=== PATIENT | male | born 1980 | race Hispanic/Latino ===

== ENCOUNTER 2021-02-13 10:06 | Inpatient (IN) | payer BC, OTHER ==
[~2021-02-13] VITALS: Ht 188 cm; Wt 166.5 kg
[2021-02-13 10:42] LABS: BASOPHILS % (AUTO) 0.7 % (0.0-5.0); EOSINOPHILS % (AUTO) 4.5 % (0.0-8.0); HEMATOCRIT 44.8 % (42-54); LYMPHOCYTES % (AUTO) 23.3 % (21.0-51.0); MEAN CORPUSCULAR HEMOGLOBIN 29.5 pg (27.0-33.0); MEAN CORPUSCULAR HGB CONC 33.7 g/dL (32.0-36.0); MEAN CORPUSCULAR VOLUME 87.7 fL (79-99); MONOCYTES % (AUTO) 8.5 % (3.0-13.0); NEUTROPHILS % (AUTO) 60.9 % (40.0-77.0); PLATELET COUNT (AUTO) 189 K/uL (130-400); RED BLOOD CELL COUNT(AUTO) 5.11 MIL/uL (4.50-6.20); RED CELL DISTRIBUTION WIDTH 12.4 % (11.0-15.5); WHITE BLOOD COUNT (AUTO) 8.5 K/uL (4.8-10.8)
[2021-02-13 10:56] LABS: ALBUMIN 2.9 g/dL (3.5-5.0); BILIRUBIN,TOTAL 0.9 mg/dL (0.2-1.0); POTASSIUM 3.4 mmol/L (3.5-5.1)
[2021-02-13] MEDS ORDERED: DiphenhydrAMINE HCL 50 MG/ML VIAL IV PRN (15:45)
[2021-02-13] MEDS ORDERED: NITROGLYCERIN 0.4 MG SL TAB SL PRN (15:45)
[2021-02-13] MEDS ORDERED: POTASSIUM CHLORIDE 20MEQ/100ML 100 ML IV PRN ×2 (15:45)
[2021-02-13] MEDS ORDERED: LACTATED RINGERS 1000ML 1,000 ML IV SCH (15:45)
[2021-02-13] MEDS ORDERED: ONDANSETRON 4MG INJ IV PRN (15:45)
[2021-02-13] MEDS ORDERED: LACTULOSE 20 GM/30 ML UDCUP PO PRN (15:45)
[2021-02-13] MEDS ORDERED: GLUCAGON 1MG KIT 1 MG ML IM PRN (15:45)
[2021-02-13] MEDS ORDERED: POTASSIUM CHLORIDE 10% ELIXIR 20 MEQ/15 ML UDCUP PO PRN (15:45)
[2021-02-13] MEDS ORDERED: GUAIFENESIN-DM 200/20 MG 10 ML PO PRN (15:45)
[2021-02-13] MEDS ORDERED: DEXTROSE 50%-WATER 50 ML DISP.SYRIN IV PRN (15:45)
[2021-02-13] MEDS ORDERED: DIPHENHYDRAMINE HCL 25 MG CAPSULE PO PRN (15:45)
[2021-02-13] MEDS ORDERED: ACETAMINOPHEN 325 MG TAB PO PRN ×2 (15:45)
[2021-02-13] MEDS ORDERED: MAG/ALUM/SIMETH 30 ML UDCUP PO PRN (15:45)
[2021-02-13 15:59] LABS: HEMOGLOBIN A1C 12.7 % (4.0-6.0)
[2021-02-13] MEDS ORDERED: CEFTRIAXONE 1G VIAL IVP SCH (16:00)
[2021-02-13] MEDS ORDERED: CEFTRIAXONE 1G VIAL ONE (16:21)
[2021-02-13] MEDS ORDERED: LACTATED RINGERS 1000ML 1,000 ML IV ONE (16:21)
[2021-02-13] MEDS ORDERED: CLINDAMYCIN IVPB 600MG/50ML 50 ML IV ONE ×2 (16:23→20:43)
[2021-02-13] MEDS ORDERED: INSULIN HUMULIN R 100 UNIT/ML 3ML ONE (18:54)
[2021-02-13 19:44] LABS: TROPONIN I 0.04 ng/mL (0.00-0.06)
[2021-02-13] MEDS ORDERED: METOPROLOL TARTRATE 25 MG TAB ONE (20:43)
[2021-02-13 20:59] LABS: APPEARANCE,URINE Clear (CLEAR); BILIRUBIN,URINE Negative (NEGATIVE); COLOR,URINE Yellow (YELLOW); GLUCOSE, URINE (UA) >=1000 mg/dL (NEGATIVE); KETONES,URINE >=160 mg/dL (NEGATIVE); LEUKOCYTE ESTERASE ,URINE Small (NEGATIVE); NITRATE,URINE Negative (NEGATIVE); OCCULT BLOOD,URINE Negative (NEGATIVE); PROTEIN,URINE Trace mg/dL (NEGATIVE)
[2021-02-13] MEDS: INSULIN HUMULIN R 100 UNIT/ML 3ML SQ SCH (21:00)
[2021-02-13 21:05] LABS: BACTERIA,URINE Rare /HPF (None Seen); RBC,URINE 0-1 /HPF (0-1); SQUAMOUS EPITHELIAL CELL,UR Few /HPF (0-2)
[2021-02-13 21:06] LABS: YEAST,URINE BUDDING Rare /HPF (None Seen)
[2021-02-13 21:07] LABS: AMPHET/METH SCREEN,URINE NEGATIVE (NEGATIVE); BARBITURATE SCREEN, URINE NEGATIVE (NEGATIVE); BENZODIAZEPINES SCREEN,URINE NEGATIVE (NEGATIVE); CANNABINOID SCREEN,URINE NEGATIVE (NEGATIVE); COCAINE SCREEN,URINE POSITIVE (NEGATIVE); OPIATE SCREEN,URINE NEGATIVE (NEGATIVE); PHENCYCLIDINE SCREEN,URINE NEGATIVE (NEGATIVE)
[2021-02-13 23:12] VITALS: BP 130/64
[2021-02-14] MEDS: INSULIN HUMULIN R 100 UNIT/ML 3ML SQ SCH ×5 (00:06→20:39)
[2021-02-14] MEDS: METOPROLOL TARTRATE 25 MG TAB PO SCH ×3 (00:08→20:51)
[2021-02-14] MEDS: INSULIN GLARGINE 100 UNITS/ML 10 ML VIAL SQ SCH ×2 (00:12→20:38)
[2021-02-14 03:46] LABS: BASOPHILS % (AUTO) 0.4 % (0.0-5.0); HEMATOCRIT 41.5 % (42-54); LYMPHOCYTES % (AUTO) 27.5 % (21.0-51.0); MEAN CORPUSCULAR HEMOGLOBIN 28.9 pg (27.0-33.0); MEAN CORPUSCULAR HGB CONC 33.3 g/dL (32.0-36.0); MEAN CORPUSCULAR VOLUME 86.8 fL (79-99); MONOCYTES % (AUTO) 12.6 % (3.0-13.0); NEUTROPHILS % (AUTO) 53.3 % (40.0-77.0); PLATELET COUNT (AUTO) 210 K/uL (130-400); RED BLOOD CELL COUNT(AUTO) 4.78 MIL/uL (4.50-6.20); RED CELL DISTRIBUTION WIDTH 12.2 % (11.0-15.5); WHITE BLOOD COUNT (AUTO) 7.8 K/uL (4.8-10.8)
[2021-02-14 04:02] LABS: CARBON DIOXIDE 26 mmol/L (21-32); CHLORIDE 97 mmol/L (101-111); CREATININE 0.8 mg/dL (0.5-1.5); GLOMERULAR FILTR. RATE CALC 114 mL/min (>60); GLUCOSE,RANDOM 240 mg/dL (70-105); POTASSIUM 3.7 mmol/L (3.5-5.1); SODIUM SERUM 134 mmol/L (136-145); UREA NITROGEN, BLOOD 12 mg/dL (7-18)
[2021-02-14 04:07] LABS: ALANINE AMINOTRANSFERASE 49 U/L (12-78); ALBUMIN 2.5 g/dL (3.5-5.0); ASPARTATE AMINOTRANSFERASE 19 U/L (10-37); BILIRUBIN,TOTAL 0.7 mg/dL (0.2-1.0); CREATINE KINASE, TOTAL 19 U/L (21-232); MYOGLOBIN 24 ng/mL (10-92); TOTAL PROTEIN, SERUM 6.9 g/dL (6.0-8.3); TROPONIN I < 0.04 ng/mL (0.00-0.06)
[2021-02-14 04:30] VITALS: BP 128/62
[2021-02-14] MEDS ORDERED: 0.9% NACL 250ML 250 ML IV ONE (05:08)
[2021-02-14] MEDS: CLINDAMYCIN IVPB 600MG/50ML 50 ML IV SCH ×3 (05:09→16:59)
[2021-02-14 08:43] VITALS: BP 120/78
[2021-02-14] MEDS: CEFTRIAXONE 1G VIAL IVP SCH (09:01)
[2021-02-14] MEDS: ASPIRIN 325 MG TABLET PO SCH (09:01)
[2021-02-14] MEDS: ENOXAPARIN SODIUM 40 MG/0.4 ML SYRINGE SQ SCH (09:02)
[2021-02-14 12:04] VITALS: BP 119/73
[2021-02-14 16:20] VITALS: BP_SYST 131; BP_DIAS 48; BP_DIAS 87
[2021-02-14] MEDS: 0.9%NACL 1000ML 1,000 ML IV SCH (16:59)
[2021-02-14 19:08] VITALS: BP 131/92
[2021-02-14 23:11] VITALS: BP 118/59
[2021-02-15] MEDS: CLINDAMYCIN IVPB 600MG/50ML 50 ML IV SCH ×5 (00:14→23:11)
[2021-02-15] MEDS: 0.9%NACL 1000ML 1,000 ML IV SCH ×2 (03:08→22:04)
[2021-02-15 03:36] VITALS: BP 137/81
[2021-02-15 04:39] LABS: BASOPHILS % (AUTO) 0.5 % (0.0-5.0); EOSINOPHILS % (AUTO) 4.1 % (0.0-8.0); HEMATOCRIT 42.2 % (42-54); LYMPHOCYTES % (AUTO) 27.5 % (21.0-51.0); MEAN CORPUSCULAR HEMOGLOBIN 28.8 pg (27.0-33.0); MEAN CORPUSCULAR HGB CONC 32.9 g/dL (32.0-36.0); MEAN CORPUSCULAR VOLUME 87.6 fL (79-99); MONOCYTES % (AUTO) 11.3 % (3.0-13.0); NEUTROPHILS % (AUTO) 55.4 % (40.0-77.0); PLATELET COUNT (AUTO) 238 K/uL (130-400); RED BLOOD CELL COUNT(AUTO) 4.82 MIL/uL (4.50-6.20); RED CELL DISTRIBUTION WIDTH 12.4 % (11.0-15.5); WHITE BLOOD COUNT (AUTO) 8.5 K/uL (4.8-10.8)
[2021-02-15 05:07] LABS: ALBUMIN 2.5 g/dL (3.5-5.0); BILIRUBIN,TOTAL 0.7 mg/dL (0.2-1.0); CREATININE 0.8 mg/dL (0.5-1.5); POTASSIUM 3.4 mmol/L (3.5-5.1)
[2021-02-15] MEDS: INSULIN HUMULIN R 100 UNIT/ML 3ML SQ SCH ×4 (06:19→20:21)
[2021-02-15 07:00] VITALS: BP 136/84
[2021-02-15] MEDS: ASPIRIN 325 MG TABLET PO SCH (10:15)
[2021-02-15] MEDS: CEFTRIAXONE 1G VIAL IVP SCH (10:16)
[2021-02-15] MEDS: ENOXAPARIN SODIUM 40 MG/0.4 ML SYRINGE SQ SCH (10:16)
[2021-02-15] MEDS: METOPROLOL TARTRATE 25 MG TAB PO SCH ×2 (10:16→20:17)
[2021-02-15 11:00] VITALS: BP 139/92
[2021-02-15 15:00] VITALS: BP 134/77
[2021-02-15 19:11] VITALS: BP 150/84
[2021-02-15] MEDS: INSULIN GLARGINE 100 UNITS/ML 10 ML VIAL SQ SCH (20:19)
[2021-02-15] MEDS: NYSTATIN 100000 UNIT/ML 5ML UDCUP PO SCH (21:00)
[2021-02-15 23:19] VITALS: BP 127/79
[2021-02-16 03:56] VITALS: BP 130/76
[2021-02-16 05:02] LABS: BASOPHILS % (AUTO) 0.6 % (0.0-5.0); EOSINOPHILS % (AUTO) 4.1 % (0.0-8.0); HEMATOCRIT 42.5 % (42-54); LYMPHOCYTES % (AUTO) 29.3 % (21.0-51.0); MEAN CORPUSCULAR HEMOGLOBIN 29.8 pg (27.0-33.0); MEAN CORPUSCULAR HGB CONC 34.1 g/dL (32.0-36.0); MEAN CORPUSCULAR VOLUME 87.4 fL (79-99); MONOCYTES % (AUTO) 9.3 % (3.0-13.0); NEUTROPHILS % (AUTO) 55.3 % (40.0-77.0); PLATELET COUNT (AUTO) 292 K/uL (130-400); RED BLOOD CELL COUNT(AUTO) 4.86 MIL/uL (4.50-6.20); RED CELL DISTRIBUTION WIDTH 12.4 % (11.0-15.5); WHITE BLOOD COUNT (AUTO) 9.5 K/uL (4.8-10.8)
[2021-02-16] MEDS: CLINDAMYCIN IVPB 600MG/50ML 50 ML IV SCH ×2 (05:25→12:08)
[2021-02-16 05:35] LABS: ALBUMIN 2.6 g/dL (3.5-5.0); BILIRUBIN,TOTAL 0.6 mg/dL (0.2-1.0); CREATININE 0.7 mg/dL (0.5-1.5); POTASSIUM 3.3 mmol/L (3.5-5.1); TOTAL PROTEIN, SERUM 7.2 g/dL (6.0-8.3)
[2021-02-16] MEDS: KCL 20 MEQ ERTAB PO PRN ×3 (06:24→12:22)
[2021-02-16] MEDS: INSULIN HUMULIN R 100 UNIT/ML 3ML SQ SCH ×3 (06:26→17:13)
[2021-02-16] MEDS: METOPROLOL TARTRATE 25 MG TAB PO SCH (08:34)
[2021-02-16] MEDS: ASPIRIN 325 MG TABLET PO SCH (08:35)
[2021-02-16] MEDS: CEFTRIAXONE 1G VIAL IVP SCH (08:35)
[2021-02-16] MEDS: 0.9%NACL 1000ML 1,000 ML IV SCH (08:36)
[2021-02-16] MEDS: ENOXAPARIN SODIUM 40 MG/0.4 ML SYRINGE SQ SCH (08:36)
[2021-02-16 08:50] VITALS: BP 141/80
[2021-02-16] MEDS: NYSTATIN 100000 UNIT/ML 5ML UDCUP PO SCH ×2 (09:00→12:14)
[2021-02-16 11:41] VITALS: BP 118/73
[2021-02-16] MEDS ORDERED: CLIN-141 PO (13:41)
[2021-02-16 16:30] VITALS: BP 120/73
[2021-02-16] MEDS ORDERED: FAMOTIDINE 20MG TAB PO SCH (21:00)
== END 2021-02-16 17:45 | disposition home or self-care (01) | DRG 439 ==
LOC: EDH 10:06 → OBSVTOIN 10:07 → INTOOBSV 10:07 → UNDOADMOB 10:07 → EDHIP 10:07 → 4CH 22:30 → 4DH 02-15 04:04
PROVIDERS: ADMIT Family Medicine; ATTEND Family Medicine
DX: K85.90 Acute pancreatitis without necrosis or infection, unspecified (principal); L02.415 Cutaneous abscess of right lower limb; L03.115 Cellulitis of right lower limb; E11.65 Type 2 diabetes mellitus with hyperglycemia; E78.00 Pure hypercholesterolemia, unspecified; K80.20 Calculus of gallbladder without cholecystitis without obstruction; E87.6 Hypokalemia
CPT/HCPCS: 36415; 71045; 73700; 74176; 80053; 80305; 81001; 82550; 82948; 83036; 83690; 83874; 84132; 84478; 84484; 85025; 87040; 87070; 87077; 87186; 87426; 87641; 93005; G0378; J0696; J1650; J1815; J3480; J3490; J7050; J7120; U0003

== ENCOUNTER 2021-08-16 12:03 | Inpatient (IN) | payer SELFPAY ==
[~2021-08-16] VITALS: Ht 180.3 cm; Wt 172.0 kg
[~2021-08-16 12:03] MED LIST: CLIN-141 PO
[2021-08-16] MEDS ORDERED: ONDANSETRON 4MG INJ IVP SCH (12:30)
[2021-08-16] MEDS ORDERED: MORPHINE 2 MG SYG IVP SCH (12:30)
[2021-08-16] MEDS ORDERED: INSULIN HUMULIN R 100 UNIT/ML 3ML SQ SCH (12:30)
[2021-08-16] MEDS ORDERED: ZOSYN 3.375GM +NS 50ML IV SCH (12:30)
[2021-08-16] MEDS ORDERED: 0.9%NACL 1000ML 1,000 ML IV SCH (12:30)
[2021-08-16 12:51] LABS: HEMATOCRIT 44.5 % (42-54); MEAN CORPUSCULAR HEMOGLOBIN 29.9 pg (27.0-33.0); MEAN CORPUSCULAR HGB CONC 33.5 g/dL (32.0-36.0); MEAN CORPUSCULAR VOLUME 89.4 fL (79-99); RED BLOOD CELL COUNT(AUTO) 4.98 MIL/uL (4.50-6.20); RED CELL DISTRIBUTION WIDTH 12.3 % (11.0-15.5); WHITE BLOOD COUNT (AUTO) 11.6 K/uL (4.8-10.8)
[2021-08-16] MEDS ORDERED: ACETAMINOPHEN 500 MG TABLET ONE (13:15)
[2021-08-16] MEDS: ZOSYN 3.375GM+NS 50ML 50 ML IV SCH ×2 (13:20→22:13)
[2021-08-16 13:27] LABS: ALBUMIN 3.4 g/dL (3.5-5.0); BILIRUBIN,TOTAL 1.5 mg/dL (0.2-1.0); CREATININE 1.2 mg/dL (0.5-1.5); POTASSIUM 3.9 mmol/L (3.5-5.1); TOTAL PROTEIN, SERUM 7.9 g/dL (6.0-8.3)
[2021-08-16] MEDS ORDERED: ACETAMINOPHEN 500 MG TABLET PO ONE (14:00)
[2021-08-16 14:05] LABS: APPEARANCE,URINE Cloudy (CLEAR); BILIRUBIN,URINE Negative (NEGATIVE); COLOR,URINE Yellow (YELLOW); GLUCOSE, URINE (UA) >=1000 mg/dL (NEGATIVE); KETONES,URINE Trace mg/dL (NEGATIVE); LEUKOCYTE ESTERASE ,URINE Small (NEGATIVE); NITRATE,URINE Negative (NEGATIVE); OCCULT BLOOD,URINE Negative (NEGATIVE); PROTEIN,URINE Negative (NEGATIVE); UROBILINOGEN,URINE 0.2 mg/dL (0.2-1.0)
[2021-08-16 14:20] LABS: BACTERIA,URINE Few /HPF (None Seen); RBC,URINE 0-1 /HPF (0-1)
[2021-08-16] MEDS ORDERED: VANCOMYCIN KIT 1 GM/250 ML IV.KIT IV SCH (14:30)
[2021-08-16] MEDS ORDERED: VANCOMYCIN 1G VIAL IVPB ONE (14:30)
[2021-08-16] MEDS ORDERED: 0.9% NACL 250ML 250 ML IV SCH (14:30)
[2021-08-16] MEDS ORDERED: ZOLPIDEM TARTRATE 5 MG TAB PO PRN (15:30)
[2021-08-16] MEDS ORDERED: ONDANSETRON 4MG INJ IV PRN (15:30)
[2021-08-16] MEDS: 0.9%NACL 1000ML 1,000 ML IV SCH (15:30)
[2021-08-16] MEDS ORDERED: ACETAMINOPHEN 325 MG TAB PO PRN (15:30)
[2021-08-16] MEDS ORDERED: MORPHINE 4 MG SYG IV PRN (15:30)
[2021-08-16] MEDS ORDERED: VANCOMYCIN PROTOCOL PER PHARMACY IV PRN (15:30)
[2021-08-16] MEDS ORDERED: DiphenhydrAMINE HCL 50 MG/ML VIAL IV PRN (15:30)
[2021-08-16] MEDS ORDERED: METF-446 PO (15:36)
[2021-08-16 15:59] LABS: HEMOGLOBIN A1C 11.1 % (4.0-6.0)
[2021-08-16] MEDS ORDERED: GLUCAGON 1MG KIT 1 MG ML IM PRN (16:30)
[2021-08-16] MEDS ORDERED: DEXTROSE 50%-WATER 50 ML DISP.SYRIN IV PRN (16:30)
[2021-08-16] MEDS ORDERED: COMPOUND IV REFRIGERATED 1 EACH IVSOLN MISC PRN (16:30)
[2021-08-16] MEDS: INSULIN HUMULIN R 100 UNIT/ML 3ML SQ SCH ×2 (18:00→21:00)
[2021-08-16] MEDS ORDERED: 0.9%NACL 50ML 50 ML IV ONE (22:08)
[2021-08-16] MEDS: FAMOTIDINE 20MG VIAL IV SCH (22:13)
[2021-08-16] MEDS: VANCOMYCIN 1.5GM/NS 250ML IV SCH ×2 (23:02)
[2021-08-16 23:25] VITALS: BP 118/61
[2021-08-17] VITALS (7 sets, daily range): BP systolic 85–156; BP diastolic 58–102
[2021-08-17] MEDS: 0.9%NACL 1000ML 1,000 ML IV SCH ×2 (01:30→06:01)
[2021-08-17 03:42] LABS: BASOPHILS % (AUTO) 0.3 % (0.0-5.0); EOSINOPHILS % (AUTO) 1.7 % (0.0-8.0); HEMATOCRIT 40.2 % (42-54); LYMPHOCYTES % (AUTO) 30.1 % (21.0-51.0); MEAN CORPUSCULAR HEMOGLOBIN 30.1 pg (27.0-33.0); MEAN CORPUSCULAR HGB CONC 32.8 g/dL (32.0-36.0); MEAN CORPUSCULAR VOLUME 91.8 fL (79-99); NEUTROPHILS % (AUTO) 58.4 % (40.0-77.0); PLATELET COUNT (AUTO) 146 K/uL (130-400); RED BLOOD CELL COUNT(AUTO) 4.38 MIL/uL (4.50-6.20); RED CELL DISTRIBUTION WIDTH 12.3 % (11.0-15.5); WHITE BLOOD COUNT (AUTO) 10.5 K/uL (4.8-10.8)
[2021-08-17 03:56] LABS: ALBUMIN 2.8 g/dL (3.5-5.0); CREATININE 0.9 mg/dL (0.5-1.5); POTASSIUM 3.8 mmol/L (3.5-5.1); TOTAL PROTEIN, SERUM 6.8 g/dL (6.0-8.3)
[2021-08-17] MEDS: ZOSYN 3.375GM+NS 50ML 50 ML IV SCH ×3 (05:02→21:32)
[2021-08-17] MEDS: INSULIN HUMULIN R 100 UNIT/ML 3ML SQ SCH ×7 (05:49→21:33)
[2021-08-17] MEDS: VANCOMYCIN 1.5GM/NS 250ML IV SCH ×6 (06:40→22:04)
[2021-08-17] MEDS: INSULIN GLARGINE 100 UNITS/ML 10 ML VIAL SQ SCH (09:02)
[2021-08-17] MEDS: FAMOTIDINE 20MG VIAL IV SCH ×2 (09:06→21:32)
[2021-08-17] MEDS: ENOXAPARIN SODIUM 30 MG/0.3 ML SQ SCH (09:07)
[2021-08-17] MEDS ORDERED: KETOROLAC 15MG/ML VIAL (15MG/ML) IM PRN (09:30)
[2021-08-17] MEDS: POLYETHYLENE GLYCOL 3350 17 GM POWD.PACK PO SCH (14:59)
[2021-08-17] MEDS: ACETAMINOPHEN 325 MG TAB PO PRN (21:55)
[2021-08-18] VITALS (22 sets, daily range): BP systolic 126–169; BP diastolic 58–93
[2021-08-18 05:07] LABS: BASOPHILS % (AUTO) 0.4 % (0.0-5.0); EOSINOPHILS % (AUTO) 1.6 % (0.0-8.0); HEMATOCRIT 39.5 % (42-54); LYMPHOCYTES % (AUTO) 27.5 % (21.0-51.0); MEAN CORPUSCULAR HGB CONC 32.7 g/dL (32.0-36.0); MEAN CORPUSCULAR VOLUME 91.9 fL (79-99); MONOCYTES % (AUTO) 9.5 % (3.0-13.0); NEUTROPHILS % (AUTO) 60.4 % (40.0-77.0); PLATELET COUNT (AUTO) 157 K/uL (130-400); RED CELL DISTRIBUTION WIDTH 12.2 % (11.0-15.5)
[2021-08-18] MEDS: ACETAMINOPHEN 325 MG TAB PO PRN (05:15)
[2021-08-18] MEDS: ZOSYN 3.375GM+NS 50ML 50 ML IV SCH ×4 (05:16→20:39)
[2021-08-18 05:26] LABS: CREATININE 0.8 mg/dL (0.5-1.5); POTASSIUM 3.4 mmol/L (3.5-5.1)
[2021-08-18] MEDS: VANCOMYCIN 1.5GM/NS 250ML IV SCH ×6 (06:12→22:25)
[2021-08-18] MEDS: INSULIN GLARGINE 100 UNITS/ML 10 ML VIAL SQ SCH (07:00)
[2021-08-18] MEDS: INSULIN HUMULIN R 100 UNIT/ML 3ML SQ SCH ×7 (07:30→20:41)
[2021-08-18] MEDS: FAMOTIDINE 20MG VIAL IV SCH ×2 (08:52→20:39)
[2021-08-18] MEDS: ENOXAPARIN SODIUM 30 MG/0.3 ML SQ SCH (09:00)
[2021-08-18] MEDS: POLYETHYLENE GLYCOL 3350 17 GM POWD.PACK PO SCH (09:00)
[2021-08-18 09:53] LABS: INR 1.04 (0.85-1.15); PROTHROMBIN TIME 11.3 SEC (9.6-11.6)
[2021-08-18 09:54] LABS: PARTIAL THROMBOPLASTIN TIME 28.1 SEC (26.3-35.5)
[2021-08-18] MEDS ORDERED: SUCCINYLCHOLINE CHLORIDE 20 MG/ML 10 ML VIAL ONE (12:46)
[2021-08-18] MEDS ORDERED: LIDOCAINE PF 100MG/5ML (2%) SYRINGE 5ML ONE (12:46)
[2021-08-18] MEDS ORDERED: DEXAMETHASONE SOD PHOSPHATE 10MG/ML 1ML VIAL ONE (12:46)
[2021-08-18] MEDS ORDERED: GLYCOPYRROLATE 1 MG/5 ML SYRINGE ONE (12:47)
[2021-08-18] MEDS ORDERED: NEOSTIGMINE 5MG/5ML SYR IV ONE (12:47)
[2021-08-18] MEDS ORDERED: ONDANSETRON 4MG INJ ONE (12:47)
[2021-08-18] MEDS ORDERED: MIDAZOLAM HCL 1 MG/ML 2ML VIAL ONE (12:47)
[2021-08-18] MEDS ORDERED: PROPOFOL 10 MG/ML 20ML VIAL IV ONE ×2 (12:47→12:50)
[2021-08-18] MEDS ORDERED: FENTANYL CITRATE PF 50 MCG/1 ML 2ML VIAL ONE ×2 (12:48→13:23)
[2021-08-18] MEDS ORDERED: ROCURONIUM 10MG/1ML SYR 10 MG/ML ML ONE (12:48)
[2021-08-18] MEDS ORDERED: MEPERIDINE-PF 25 MG/ML SYG ONE (13:33)
[2021-08-18] MEDS: 0.9%NACL 1000ML 1,000 ML IV SCH (13:48)
[2021-08-19] VITALS (7 sets, daily range): BP systolic 121–139; BP diastolic 59–88
[2021-08-19] MEDS: ZOSYN 3.375GM+NS 50ML 50 ML IV SCH ×3 (04:28→20:44)
[2021-08-19 05:44] LABS: BASOPHILS % (AUTO) 0.3 % (0.0-5.0); HEMATOCRIT 40.2 % (42-54); LYMPHOCYTES % (AUTO) 20.3 % (21.0-51.0); MEAN CORPUSCULAR HGB CONC 33.3 g/dL (32.0-36.0); MEAN CORPUSCULAR VOLUME 90.1 fL (79-99); MONOCYTES % (AUTO) 7.3 % (3.0-13.0); NEUTROPHILS % (AUTO) 71.4 % (40.0-77.0); PLATELET COUNT (AUTO) 192 K/uL (130-400); RED BLOOD CELL COUNT(AUTO) 4.46 MIL/uL (4.50-6.20); WHITE BLOOD COUNT (AUTO) 9.8 K/uL (4.8-10.8)
[2021-08-19 06:08] LABS: CREATININE 0.8 mg/dL (0.5-1.5); POTASSIUM 4.2 mmol/L (3.5-5.1)
[2021-08-19] MEDS: VANCOMYCIN 1.5GM/NS 250ML IV SCH ×2 (06:24)
[2021-08-19] MEDS: INSULIN GLARGINE 100 UNITS/ML 10 ML VIAL SQ SCH (06:33)
[2021-08-19] MEDS: INSULIN HUMULIN R 100 UNIT/ML 3ML SQ SCH ×7 (06:34→21:59)
[2021-08-19] MEDS: POLYETHYLENE GLYCOL 3350 17 GM POWD.PACK PO SCH (08:24)
[2021-08-19] MEDS: FAMOTIDINE 20MG VIAL IV SCH ×2 (08:24→20:44)
[2021-08-19] MEDS: ENOXAPARIN SODIUM 30 MG/0.3 ML SQ SCH (08:25)
[2021-08-19] MEDS: VANCOMYCIN 1G 1.75 GM in 0.9% NACL 250ML 250 ML IV SCH ×2 (15:11→22:24)
[2021-08-20 03:46] VITALS: BP 125/85
[2021-08-20] MEDS: ZOSYN 3.375GM+NS 50ML 50 ML IV SCH ×2 (05:05→12:18)
[2021-08-20] MEDS: VANCOMYCIN 1G 1.75 GM in 0.9% NACL 250ML 250 ML IV SCH (06:19)
[2021-08-20] MEDS: INSULIN HUMULIN R 100 UNIT/ML 3ML SQ SCH ×7 (06:36→20:19)
[2021-08-20] MEDS: INSULIN GLARGINE 100 UNITS/ML 10 ML VIAL SQ SCH (06:37)
[2021-08-20 08:10] VITALS: BP 126/84
[2021-08-20] MEDS: FAMOTIDINE 20MG VIAL IV SCH ×2 (08:24→20:13)
[2021-08-20] MEDS: POLYETHYLENE GLYCOL 3350 17 GM POWD.PACK PO SCH (08:24)
[2021-08-20] MEDS: ENOXAPARIN SODIUM 30 MG/0.3 ML SQ SCH (08:24)
[2021-08-20 11:17] VITALS: BP 116/63
[2021-08-20 17:03] VITALS: BP 127/88
[2021-08-20] MEDS: CEPHALEXIN 500 MG CAPSULE PO SCH ×2 (17:18→22:18)
[2021-08-20 19:31] VITALS: BP 140/86
[2021-08-20 23:35] VITALS: BP 105/52
[2021-08-21 03:31] VITALS: BP 123/78
[2021-08-21] MEDS: INSULIN HUMULIN R 100 UNIT/ML 3ML SQ SCH ×5 (06:18→12:08)
[2021-08-21] MEDS: CEPHALEXIN 500 MG CAPSULE PO SCH ×2 (06:32→12:06)
[2021-08-21] MEDS ORDERED: INSULIN GLARGINE 100 UNITS/ML 10 ML VIAL SQ SCH (07:00)
[2021-08-21 07:15] VITALS: BP 150/91
[2021-08-21] MEDS: POLYETHYLENE GLYCOL 3350 17 GM POWD.PACK PO SCH (08:45)
[2021-08-21] MEDS: ENOXAPARIN SODIUM 30 MG/0.3 ML SQ SCH (08:45)
[2021-08-21] MEDS: FAMOTIDINE 20MG VIAL IV SCH (08:45)
[2021-08-21] MEDS ORDERED: POLY17PO4 PO (10:48)
[2021-08-21] MEDS ORDERED: CEPH500C2 PO (10:48)
[2021-08-21] MEDS ORDERED: GLIM4TAB36 PO (10:48)
[2021-08-21 11:15] VITALS: BP 123/81
== END 2021-08-21 15:05 | disposition home or self-care (01) | DRG 872 ==
LOC: EDH 12:03 → EDHIP 12:04 → 3AH 21:31
PROVIDERS: ADMIT Hospitalist; ATTEND Hospitalist
PROC: 0H98XZZ Drainage of Buttock Skin, External Approach (ICD-10-PCS; principal; 2021-08-18 13:24)
DX: A41.9 Sepsis, unspecified organism (principal); L02.215 Cutaneous abscess of perineum; E87.1 Hypo-osmolality and hyponatremia; K61.2 Anorectal abscess; Z68.43 Body mass index [BMI] 50.0-59.9, adult; L02.31 Cutaneous abscess of buttock; N39.0 Urinary tract infection, site not specified; E66.01 Morbid (severe) obesity due to excess calories; E11.65 Type 2 diabetes mellitus with hyperglycemia; K62.89 Other specified diseases of anus and rectum; Z20.822 Contact with and (suspected) exposure to COVID-19; K59.00 Constipation, unspecified; Z79.84 Long term (current) use of oral hypoglycemic drugs; Z83.3 Family history of diabetes mellitus; Z82.49 Family history of ischemic heart disease and other diseases of the circulatory system
CPT/HCPCS: 36415; 74176; 80048; 80053; 80202; 81001; 82010; 82948; 83036; 83605; 84484; 85025; 85027; 85610; 85730; 86140; 87040; 87070; 87076; 87077; 87088; 87186; 87205; 87635; 93005; 99291; C9803; G0378; J0330; J1100; J1650; J1815; J2001; J2175; J2250; J2270; J2405; J2543; J2704; J2710; J3010; J3370; J3490; J7030; J7050

== ENCOUNTER 2021-09-08 12:31 | Inpatient (IN) | payer SELFPAY ==
[~2021-09-08] VITALS: Ht 180.3 cm; Wt 167.9 kg
[~2021-09-08 12:31] MED LIST changes: +CEPH500C2 PO; -CLIN-141 PO; +GLIM4TAB36 PO; +METF-446 PO; +POLY17PO4 PO
[2021-09-08 13:01] LABS: BASOPHILS % (AUTO) 0.5 % (0.0-5.0); EOSINOPHILS % (AUTO) 0.1 % (0.0-8.0); HEMATOCRIT 45.4 % (42-54); LYMPHOCYTES % (AUTO) 18.6 % (21.0-51.0); MEAN CORPUSCULAR HEMOGLOBIN 30.1 pg (27.0-33.0); MEAN CORPUSCULAR HGB CONC 33.9 g/dL (32.0-36.0); MEAN CORPUSCULAR VOLUME 88.7 fL (79-99); MONOCYTES % (AUTO) 11.5 % (3.0-13.0); NEUTROPHILS % (AUTO) 68.9 % (40.0-77.0); PLATELET COUNT (AUTO) 137 K/uL (130-400); RED BLOOD CELL COUNT(AUTO) 5.12 MIL/uL (4.50-6.20); RED CELL DISTRIBUTION WIDTH 11.9 % (11.0-15.5); WHITE BLOOD COUNT (AUTO) 13.7 K/uL (4.8-10.8)
[2021-09-08 13:09] LABS: CREATININE 1.4 mg/dL (0.5-1.5); POTASSIUM 3.6 mmol/L (3.5-5.1)
[2021-09-08 13:14] LABS: ALBUMIN 2.9 g/dL (3.5-5.0); BILIRUBIN,TOTAL 1.3 mg/dL (0.2-1.0); TOTAL PROTEIN, SERUM 8.8 g/dL (6.0-8.3)
[2021-09-08] MEDS ORDERED: ACETAMINOPHEN 500 MG TABLET PO ONE (13:30)
[2021-09-08] MEDS ORDERED: 0.9%NACL 1000ML 2,259 ML IV ONE (13:30)
[2021-09-08] MEDS ORDERED: ACETAMINOPHEN 500 MG TABLET ONE (13:31)
[2021-09-08 14:21] LABS: APPEARANCE,URINE Cloudy (CLEAR); BILIRUBIN,URINE Small (NEGATIVE); COLOR,URINE Dark Yellow (YELLOW); GLUCOSE, URINE (UA) >=1000 mg/dL (NEGATIVE); KETONES,URINE 40 mg/dL (NEGATIVE); LEUKOCYTE ESTERASE ,URINE Small (NEGATIVE); NITRATE,URINE Positive (NEGATIVE); OCCULT BLOOD,URINE Large (NEGATIVE); PROTEIN,URINE 300 mg/dL (NEGATIVE)
[2021-09-08 14:32] LABS: BACTERIA,URINE Moderate /HPF (None Seen); MUCUS,URINE Moderate LPF (None Seen); SQUAMOUS EPITHELIAL CELL,UR Few /HPF (0-2)
[2021-09-08] MEDS ORDERED: ACETAMINOPHEN 325 MG TAB PO PRN (16:00)
[2021-09-08] MEDS ORDERED: MAG/ALUM/SIMETH 30 ML UDCUP PO PRN (16:00)
[2021-09-08] MEDS ORDERED: LACTULOSE 20 GM/30 ML UDCUP PO PRN (16:00)
[2021-09-08] MEDS ORDERED: DIPHENHYDRAMINE HCL 25 MG CAPSULE PO PRN (16:00)
[2021-09-08] MEDS ORDERED: VANCOMYCIN PROTOCOL PER PHARMACY IV PRN (16:00)
[2021-09-08] MEDS ORDERED: DiphenhydrAMINE HCL 50 MG/ML VIAL IV PRN (16:00)
[2021-09-08] MEDS ORDERED: LACTATED RINGERS 1000ML 1,000 ML IV SCH (16:00)
[2021-09-08] MEDS ORDERED: HYDRALAZINE 20MG/ML VIAL IV PRN ×2 (16:00)
[2021-09-08] MEDS ORDERED: ONDANSETRON 4MG INJ IV PRN (16:00)
[2021-09-08] MEDS: LACTATED RINGERS 1000ML 1,000 ML IV SCH (16:22)
[2021-09-08] MEDS ORDERED: COMPOUND IV REFRIGERATED 1 EACH IVSOLN MISC PRN ×2 (16:30→19:00)
[2021-09-08] MEDS ORDERED: DEXTROSE 50%-WATER 50 ML DISP.SYRIN IV PRN (16:30)
[2021-09-08] MEDS ORDERED: GLUCAGON 1MG KIT 1 MG ML IM PRN (16:30)
[2021-09-08] MEDS: VANCOMYCIN 1.75GM/250ML NS IV SCH ×2 (17:03)
[2021-09-08] MEDS: INSULIN HUMULIN R 100 UNIT/ML 3ML SQ SCH (17:04)
[2021-09-08 20:00] VITALS: BP 198/89
[2021-09-08] MEDS ORDERED: FAMOTIDINE 20MG VIAL IV SCH (21:00)
[2021-09-08] MEDS ORDERED: ZOSYN 3.375GM+NS 50ML 50 ML ONE (21:09)
[2021-09-08] MEDS ORDERED: FAMOTIDINE 20MG TAB ONE (21:10)
[2021-09-08] MEDS: FAMOTIDINE 20MG TAB PO SCH (21:21)
[2021-09-08] MEDS: ZOSYN 3.375GM+NS 50ML 50 ML IV SCH (21:21)
[2021-09-08] MEDS: INSULIN GLARGINE 100 UNITS/ML 10 ML VIAL SQ SCH (21:30)
[2021-09-08] MEDS ORDERED: HYDRALAZINE 20MG/ML VIAL ONE (22:24)
[2021-09-08] MEDS ORDERED: ACETAMINOPHEN 325 MG TAB ONE (22:31)
[2021-09-08] MEDS: ACETAMINOPHEN 325 MG TAB PO PRN (22:33)
[2021-09-09] VITALS: BP 111/66
[2021-09-09] MEDS: LACTATED RINGERS 1000ML 1,000 ML IV SCH ×2 (01:09→19:43)
[2021-09-09 04:00] VITALS: BP 102/92
[2021-09-09] MEDS: ZOSYN 3.375GM+NS 50ML 50 ML IV SCH ×3 (05:28→20:43)
[2021-09-09] MEDS: INSULIN HUMULIN R 100 UNIT/ML 3ML SQ SCH ×5 (06:51→20:56)
[2021-09-09 08:00] VITALS: BP 123/73
[2021-09-09] MEDS: VANCOMYCIN 1.75GM/250ML NS IV SCH ×4 (09:00→20:58)
[2021-09-09] MEDS ORDERED: ENOXAPARIN SODIUM 40 MG/0.4 ML SYRINGE SQ SCH (09:00)
[2021-09-09] MEDS: FAMOTIDINE 20MG TAB PO SCH ×2 (09:10→20:44)
[2021-09-09] MEDS: ENOXAPARIN SODIUM 40 MG/0.4 ML SYRINGE SQ SCH (09:11)
[2021-09-09 11:45] VITALS: BP 110/52
[2021-09-09] MEDS ORDERED: GLUCAGON 1MG KIT 1 MG ML IM PRN (12:30)
[2021-09-09] MEDS ORDERED: DEXTROSE 50%-WATER 50 ML DISP.SYRIN IV PRN (12:30)
[2021-09-09 14:09] LABS: BASOPHILS % (AUTO) 0.6 % (0.0-5.0); EOSINOPHILS % (AUTO) 1.1 % (0.0-8.0); HEMATOCRIT 37.9 % (42-54); LYMPHOCYTES % (AUTO) 23.4 % (21.0-51.0); MEAN CORPUSCULAR HEMOGLOBIN 29.9 pg (27.0-33.0); MEAN CORPUSCULAR HGB CONC 33.2 g/dL (32.0-36.0); MEAN CORPUSCULAR VOLUME 89.8 fL (79-99); MONOCYTES % (AUTO) 11.6 % (3.0-13.0); NEUTROPHILS % (AUTO) 62.8 % (40.0-77.0); PLATELET COUNT (AUTO) 113 K/uL (130-400); RED BLOOD CELL COUNT(AUTO) 4.22 MIL/uL (4.50-6.20); RED CELL DISTRIBUTION WIDTH 12.1 % (11.0-15.5); WHITE BLOOD COUNT (AUTO) 8.7 K/uL (4.8-10.8)
[2021-09-09 14:25] LABS: POTASSIUM 3.2 mmol/L (3.5-5.1)
[2021-09-09 14:29] LABS: BILIRUBIN,TOTAL 0.7 mg/dL (0.2-1.0); MAGNESIUM 1.8 mg/dL (1.80-2.40); PHOSPHORUS 2.5 mg/dL (2.5-4.9); TOTAL PROTEIN, SERUM 7.5 g/dL (6.0-8.3)
[2021-09-09 14:42] LABS: CRP QUANTITATIVE 422.7 mg/L (0.00-9.0)
[2021-09-09 14:43] LABS: ALBUMIN 2.2 g/dL (3.5-5.0)
[2021-09-09 15:13] LABS: ERYTHROCYTE SEDIMENTATION RATE 100 MM/HR (0-15)
[2021-09-09 16:00] VITALS: BP 108/60
[2021-09-09] MEDS ORDERED: METFORMIN HCL 500 MG TABLET PO SCH (17:00)
[2021-09-09] MEDS: ACETAMINOPHEN 325 MG TAB PO PRN (18:58)
[2021-09-09 20:00] VITALS: BP 132/75
[2021-09-09] MEDS: METFORMIN HCL 500 MG TABLET PO SCH (20:43)
[2021-09-09] MEDS: GLIMEPIRIDE 2 MG TABLET PO SCH (20:44)
[2021-09-09] MEDS: INSULIN GLARGINE 100 UNITS/ML 10 ML VIAL SQ SCH (20:56)
[2021-09-10] VITALS: BP 111/61
[2021-09-10 04:00] VITALS: BP 114/68
[2021-09-10 04:53] LABS: BASOPHILS % (AUTO) 0.6 % (0.0-5.0); EOSINOPHILS % (AUTO) 2.8 % (0.0-8.0); HEMATOCRIT 38.2 % (42-54); LYMPHOCYTES % (AUTO) 28.6 % (21.0-51.0); MEAN CORPUSCULAR HEMOGLOBIN 29.4 pg (27.0-33.0); MEAN CORPUSCULAR HGB CONC 32.7 g/dL (32.0-36.0); MEAN CORPUSCULAR VOLUME 89.9 fL (79-99); MONOCYTES % (AUTO) 15.1 % (3.0-13.0); PLATELET COUNT (AUTO) 124 K/uL (130-400); RED BLOOD CELL COUNT(AUTO) 4.25 MIL/uL (4.50-6.20); RED CELL DISTRIBUTION WIDTH 12.1 % (11.0-15.5); WHITE BLOOD COUNT (AUTO) 6.5 K/uL (4.8-10.8)
[2021-09-10 05:21] LABS: CREATININE 0.9 mg/dL (0.5-1.5)
[2021-09-10 05:29] LABS: CRP QUANTITATIVE 372.4 mg/L (0.00-9.0)
[2021-09-10] MEDS ORDERED: MAGNESIUM 2GM PREMIX 50ML 50 ML IV PRN (05:30)
[2021-09-10] MEDS ORDERED: LIDOCAINE HCL-MPF 1% 2ML VIAL IV PRN (05:30)
[2021-09-10] MEDS ORDERED: POTASSIUM CHLORIDE 10% ELIXIR 20 MEQ/15 ML UDCUP PO PRN (05:30)
[2021-09-10] MEDS ORDERED: POTASSIUM CHLORIDE 20MEQ/100ML 100 ML IV PRN (05:30)
[2021-09-10] MEDS: ZOSYN 3.375GM+NS 50ML 50 ML IV SCH ×4 (05:40→21:41)
[2021-09-10] MEDS: INSULIN HUMULIN R 100 UNIT/ML 3ML SQ SCH ×7 (05:41→21:00)
[2021-09-10 06:06] LABS: ERYTHROCYTE SEDIMENTATION RATE 116 MM/HR (0-15)
[2021-09-10] MEDS: KCL 20 MEQ ERTAB PO PRN ×3 (06:27→17:19)
[2021-09-10 07:52] LABS: ABG OXYGEN SATURATION 79.8 % (95.0-99.0); PCO2,VENOUS BLOOD GAS 36 (35-48)
[2021-09-10 08:00] VITALS: BP 115/73
[2021-09-10] MEDS: METFORMIN HCL 500 MG TABLET PO SCH ×2 (08:47→17:24)
[2021-09-10] MEDS: FAMOTIDINE 20MG TAB PO SCH ×2 (08:47→21:41)
[2021-09-10] MEDS: GLIMEPIRIDE 2 MG TABLET PO SCH ×2 (08:48→21:00)
[2021-09-10] MEDS: ENOXAPARIN SODIUM 40 MG/0.4 ML SYRINGE SQ SCH (08:49)
[2021-09-10 12:01] VITALS: BP 115/65
[2021-09-10] MEDS: VANCOMYCIN 1.75GM/250ML NS IV SCH ×6 (13:00→21:42)
[2021-09-10 16:00] VITALS: BP 128/77
[2021-09-10 20:00] VITALS: BP 114/67
[2021-09-10] MEDS: INSULIN GLARGINE 100 UNITS/ML 10 ML VIAL SQ SCH (21:00)
[2021-09-11] VITALS: BP 104/74
[2021-09-11 04:00] VITALS: BP 121/76
[2021-09-11] MEDS: INSULIN HUMULIN R 100 UNIT/ML 3ML SQ SCH ×4 (05:49→11:49)
[2021-09-11 05:54] LABS: BASOPHILS % (AUTO) 0.5 % (0.0-5.0); EOSINOPHILS % (AUTO) 2.4 % (0.0-8.0); HEMATOCRIT 36.8 % (42-54); LYMPHOCYTES % (AUTO) 30.8 % (21.0-51.0); MEAN CORPUSCULAR HEMOGLOBIN 29.4 pg (27.0-33.0); MEAN CORPUSCULAR HGB CONC 32.6 g/dL (32.0-36.0); MEAN CORPUSCULAR VOLUME 90.2 fL (79-99); MONOCYTES % (AUTO) 12.9 % (3.0-13.0); NEUTROPHILS % (AUTO) 52.4 % (40.0-77.0); PLATELET COUNT (AUTO) 158 K/uL (130-400); RED BLOOD CELL COUNT(AUTO) 4.08 MIL/uL (4.50-6.20); RED CELL DISTRIBUTION WIDTH 12.5 % (11.0-15.5); WHITE BLOOD COUNT (AUTO) 7.8 K/uL (4.8-10.8)
[2021-09-11] MEDS: ZOSYN 3.375GM+NS 50ML 50 ML IV SCH ×2 (06:00→13:43)
[2021-09-11] MEDS: KCL 20 MEQ ERTAB PO PRN (06:00)
[2021-09-11 06:09] LABS: POTASSIUM 3.4 mmol/L (3.5-5.1)
[2021-09-11 08:00] VITALS: BP 104/65
[2021-09-11] MEDS: GLIMEPIRIDE 2 MG TABLET PO SCH (08:11)
[2021-09-11] MEDS: FAMOTIDINE 20MG TAB PO SCH (08:11)
[2021-09-11] MEDS: METFORMIN HCL 500 MG TABLET PO SCH (08:11)
[2021-09-11] MEDS: ENOXAPARIN SODIUM 40 MG/0.4 ML SYRINGE SQ SCH (08:12)
[2021-09-11] MEDS: VANCOMYCIN 1.75GM/250ML NS IV SCH ×2 (10:40)
[2021-09-11] MEDS ORDERED: CEFU500T67 PO (11:00)
[2021-09-11] MEDS ORDERED: KCL 20 MEQ ERTAB PO SCH (11:00)
[2021-09-11 12:00] VITALS: BP 109/74
[2021-09-11 16:00] VITALS: BP 128/77
== END 2021-09-11 18:15 | disposition home or self-care (01) | DRG 871 ==
LOC: EDH 12:31 → 3DH 12:32 → OBSVTOIN 12:32 → EDH 17:35
PROVIDERS: ADMIT Internal Medicine; ATTEND Internal Medicine
DX: A41.9 Sepsis, unspecified organism (principal); E11.00 Type 2 diabetes mellitus with hyperosmolarity without nonketotic hyperglycemic-hyperosmolar coma (NKHHC); E43 Unspecified severe protein-calorie malnutrition; E87.1 Hypo-osmolality and hyponatremia; N17.9 Acute kidney failure, unspecified; Z68.43 Body mass index [BMI] 50.0-59.9, adult; N39.0 Urinary tract infection, site not specified; I10 Essential (primary) hypertension; E11.65 Type 2 diabetes mellitus with hyperglycemia; E66.01 Morbid (severe) obesity due to excess calories; E86.1 Hypovolemia; E87.6 Hypokalemia; B96.20 Unspecified Escherichia coli [E. coli] as the cause of diseases classified elsewhere; Z20.822 Contact with and (suspected) exposure to COVID-19; Z83.3 Family history of diabetes mellitus; Z82.49 Family history of ischemic heart disease and other diseases of the circulatory system; Z80.8 Family history of malignant neoplasm of other organs or systems
CPT/HCPCS: 36415; 36600; 71045; 80048; 80053; 80202; 81001; 82435; 82550; 82803; 82947; 82948; 83036; 83605; 83735; 84100; 84132; 84145; 84295; 84484; 85025; 85651; 86140; 87040; 87077; 87088; 87186; 87635; 87804; 87880; C9803; G0378; J0360; J1650; J1815; J2543; J3370; J7050; J7120

== ENCOUNTER 2022-05-14 17:11 | Emergency (ER) | payer BC ==
[~2022-05-14] VITALS: Ht 188 cm; Wt 163.3 kg
[~2022-05-14 17:11] MED LIST changes: +CEFU500T67 PO; -CEPH500C2 PO
[2022-05-14 17:46] LABS: BASOPHILS % (AUTO) 0.7 % (0.0-5.0); EOSINOPHILS % (AUTO) 3.2 % (0.0-8.0); HEMATOCRIT 45.7 % (42-54); LYMPHOCYTES % (AUTO) 45.8 % (21.0-51.0); MEAN CORPUSCULAR HEMOGLOBIN 29.4 pg (27.0-33.0); MEAN CORPUSCULAR HGB CONC 33.3 g/dL (32.0-36.0); MEAN CORPUSCULAR VOLUME 88.4 fL (79-99); MONOCYTES % (AUTO) 7.3 % (3.0-13.0); NEUTROPHILS % (AUTO) 42.8 % (40.0-77.0); PLATELET COUNT (AUTO) 169 K/uL (130-400); RED BLOOD CELL COUNT(AUTO) 5.17 MIL/uL (4.50-6.20); RED CELL DISTRIBUTION WIDTH 12.6 % (11.0-15.5); WHITE BLOOD COUNT (AUTO) 8.7 K/uL (4.8-10.8)
[2022-05-14 17:53] LABS: APPEARANCE,URINE Clear (CLEAR); BILIRUBIN,URINE Negative (NEGATIVE); COLOR,URINE Yellow (YELLOW); GLUCOSE, URINE (UA) >=1000 mg/dL (NEGATIVE); KETONES,URINE Trace mg/dL (NEGATIVE); LEUKOCYTE ESTERASE ,URINE Negative (NEGATIVE); NITRATE,URINE Positive (NEGATIVE); OCCULT BLOOD,URINE Negative (NEGATIVE); PROTEIN,URINE Negative (NEGATIVE); UROBILINOGEN,URINE 0.2 mg/dL (0.2-1.0)
[2022-05-14 17:58] LABS: CREATININE 1.1 mg/dL (0.5-1.5); POTASSIUM 4.1 mmol/L (3.5-5.1)
[2022-05-14] MEDS ORDERED: KETOROLAC 15MG/ML VIAL (15MG/ML) IV ONE (18:00)
[2022-05-14] MEDS ORDERED: 0.9%NACL 1000ML 1,000 ML IV ONE (18:00)
[2022-05-14] MEDS ORDERED: ONDANSETRON 4MG INJ IVP ONE (18:00)
[2022-05-14] MEDS ORDERED: MORPHINE 4 MG SYG IVP ONE (18:00)
[2022-05-14 18:02] LABS: ALBUMIN 3.6 g/dL (3.5-5.0); TOTAL PROTEIN, SERUM 7.7 g/dL (6.0-8.3)
[2022-05-14 18:33] LABS: BACTERIA,URINE Few /HPF (None Seen); MUCUS,URINE Rare LPF (None Seen); RBC,URINE None Seen /HPF (0-1)
[2022-05-14] MEDS ORDERED: CEFTRIAXONE 1G VIAL IVP ONE (19:00)
[2022-05-14] MEDS ORDERED: 0.9% NACL 500ML IV.SOLN 500 ML IV ONE (19:00)
[2022-05-14] MEDS ORDERED: INSULIN NPH 100 UNIT/ML 3ML SQ SCH (19:00)
[2022-05-14] MEDS ORDERED: CEPH500B PO (19:05)
[2022-05-14 19:21] VITALS: BP 142/82
== END 2022-05-14 19:31 | disposition home or self-care (01) ==
LOC: EDH 17:11
DX: N39.0 Urinary tract infection, site not specified (principal); E11.65 Type 2 diabetes mellitus with hyperglycemia; Z98.890 Other specified postprocedural states; Z87.442 Personal history of urinary calculi; Z79.899 Other long term (current) drug therapy; Z79.84 Long term (current) use of oral hypoglycemic drugs
CPT/HCPCS: 99284; 74176; 96374; 96375; 96361; 80053; 85025; 87077; 87088; 87186; 81001; 36415; 96372; J1815; J7040; J7030; J0696; J2405; J2270; J1885

== ENCOUNTER 2025-02-24 10:32 | Emergency (ER) | payer BC, OTHER ==
[~2025-02-24] VITALS: Ht 188 cm; Wt 166.0 kg
[~2025-02-24 10:32] MED LIST changes: +CEPH500B PO
[2025-02-24 10:57] LABS: BASOPHILS # (AUTO) 0.06 K/uL (0.00-0.20); BASOPHILS % (AUTO) 0.7 % (0.0-5.0); EOSINOPHILS # (AUTO) 0.27 K/uL (0.00-0.70); EOSINOPHILS % (AUTO) 3.3 % (0.0-8.0); HEMATOCRIT 43.9 % (42-54); IMMATURE GRANULOCYTE ABSOLUTE 0.02 K/uL (0-1); LYMPHOCYTES # (AUTO) 3.8 K/uL (1.0-4.8); LYMPHOCYTES % (AUTO) 45.6 % (21.0-51.0); MEAN CORPUSCULAR HEMOGLOBIN 31.4 pg (27.0-33.0); MEAN CORPUSCULAR HGB CONC 33.7 g/dL (32.0-36.0); MONOCYTES # (AUTO) 0.6 K/uL (0.1-1.0); MONOCYTES % (AUTO) 7.1 % (3.0-13.0); NEUTROPHILS # (AUTO) 3.5 K/uL (1.8-7.7); NEUTROPHILS % (AUTO) 43.1 % (40.0-77.0); PLATELET COUNT (AUTO) 194 K/uL (130-400); RED BLOOD CELL COUNT(AUTO) 4.72 MIL/uL (4.50-6.20); RED CELL DISTRIBUTION WIDTH 12.7 % (11.0-15.5); WHITE BLOOD COUNT (AUTO) 8.2 K/uL (4.8-10.8)
[2025-02-24 11:05] LABS: POTASSIUM 4.2 mmol/L (3.5-5.1)
--- NOTE | 2025-02-24 11:07 | ERN ---
ED Note History of Present Illness Stated Complaint: LEFT FLANK PAIN SINCE 1 WEEK AGO Chief Complaint: Flank Pain Time Seen by MD: 10:35 Time Seen by Midlevel: 10:40 Dictation: 44-year-old male with a history of diabetes and kidney stones coming in with complaints of bilateral flank pain for one week worsening today. Patient denies having any hematuria, dysuria, nausea, vomiting or fevers. Allergies: Coded Allergies: No Known Drug Allergies (Verified Allergy, Unknown, 02/13/21) Home Meds Active Scripts Methocarbamol (Methocarbamol) 500 Mg Tablet, 1 TAB PO TID for 5 Days, #90 TAB 0 Refills Prov:SURINDER GROSS PIPE LINE REPAIRER 02/24/25 Cephalexin Monohydrate (Keflex) 500 Mg Cap, 500 MG PO QID for 7 Days, #28 CAP Prov:DAIANA STUBBS CONGRESSIONAL REPRESENTATIVE 05/14/22 Cefuroxime Axetil (Cefuroxime) 500 Mg Tablet, 500 MG PO BID, #20 TAB 0 Refills Prov:MEIR ZELAYA AGPCNP 09/11/21 Glimepiride (Glimepiride) 4 Mg Tablet, 4 MG PO BID for 30 Days, #60 TAB Prov:RUDDY AGARWAL 08/21/21 Polyethylene Glycol 3350 (Miralax) 17 Gm Powd.pack, 17 GM PO DAILY, #1 BOTTLE Prov:RUDDY AGARWAL 08/21/21 Reported Medications Metformin HCl (Metformin HCl) 1,000 Mg Tablet, 1000 MG PO BID, TAB 08/16/21 Past Medical History Past Medical History: Diabetes-Type II, Kidney Stone Additional Past Medical Hx: Obesity Surgical History: None Surgical History Other: GROIN ABSCESS REMOVAL Family History: Negative Social History: Lives with family, Other Review of System Dictation Constitutional: Negative for fever,chills, and weight loss Eyes: Negative for injury, pain,redness, and discharge ENT: Negative for injury,pain or swelling Cardiovascular: Negative for chest pain, palpitations, and edema Respiratory: Negative for shortness of breath, cough, and wheezing, Abdomen/GI: Positive for bilateral flank pain, and nausea, no vomiting, no diarrhea, and no constipation Back: Negative for injury and pain : Negative for injury, bleeding and discharge MS/Extremity: Negative for injury and deformity Skin: Negative for rash, and discoloration Neuro: Negative for headache, weakness, numbness, tingling, and seizure Psych: Negative for suicide ideation, homicidal ideation, and hallucinations Review of Systems: was completed Initial Vital Sign VS Vital Signs Date Time Temp Pulse Resp B/P (MAP) Pulse Ox O2 Delivery O2 Flow Rate FiO2 02/24/25 10:33 97.5 73 20 126/87 98 Room Air 0 02/24/25 11:28 21 Physical Exam Dictation General: awake, alert, NAD Head/Face: Normocephalic, atraumatic Eyes: PERRL, EOMI, vision at baseline ENT: oral cavity clear, TMs clear, no signs of infection Neck: Trachea midline, supple, no nuchal rigidity Cardiovascular: RRR, normal S1/S2, No MRGs, no JVD Respiratory: CTAB, no respiratory distress, No rales or wheezes Abdomen: Soft, non-tender, non-distended, normal bowel sounds, no guarding or rebound, Skin: Warm, dry, normal turgor, no rash MS/Extremity: Pulses equal, no cyanosis, neurovascular intact, FROM Neuro: COAx4, GCS 15, strength 5/5, CN 2-12 intact, normal cerebellar exam, normal gait, Psych: Normal behavior, mood, and affect normal Results (Laboratory/Radiology) Laboratory/Radiology Laboratory Tests Test 02/24/25 10:46 02/24/25 10:51 Urine Color LIGHT-YELLOW (YELLOW) Urine Appearance CLEAR (CLEAR) Urine pH 5.0 (5.0-8.0) Urine Specific [place] 1.035 (1.001-1.031) Urine Protein NEGATIVE mg/dL (NEGATIVE) Urine Glucose (UA) >=1000 mg/dL (NEGATIVE) H Urine Ketones 5 mg/dL (NEGATIVE) H Urine Occult Blood NEGATIVE (NEGATIVE) Urine Nitrate NEGATIVE (NEGATIVE) Urine Bilirubin NEGATIVE mg/dL (NEGATIVE) Urine Urobilinogen 0.2 mg/dL (0.2-1.0) Urine Leukocyte Esterase NEGATIVE Graciela/uL Urine RBC 0-1 /HPF (0-1) Urine WBC 0-1 /HPF (0-1) Urine Squamous Epithelial Cells FEW /HPF (0-2) Urine Bacteria None /HPF (None Seen) White Blood Count 8.2 K/uL (4.8-10.8) Red Blood Count 4.72 MIL/uL (4.50-6.20) Hemoglobin 14.8 g/dL (14.0-18.0) Hematocrit 43.9 % (42-54) Mean Corpuscular Volume 93.0 fL (79-99) Mean Corpuscular Hemoglobin 31.4 pg (27.0-33.0) Mean Corpuscular Hemoglobin Concent 33.7 g/dL (32.0-36.0) Red Cell Distribution Width 12.7 % (11.0-15.5) Platelet Count 194 K/uL (130-400) Mean Platelet Volume 11.3 fL (7.5-10.5) H Immature Granulocyte % (Auto) 0.2 % (0-1) Neutrophils (%) (Auto) 43.1 % (40.0-77.0) Lymphocytes (%) (Auto) 45.6 % (21.0-51.0) Monocytes (%) (Auto) 7.1 % (3.0-13.0) Eosinophils (%) (Auto) 3.3 % (0.0-8.0) Basophils (%) (Auto) 0.7 % (0.0-5.0) Neutrophils # (Auto) 3.5 K/uL (1.8-7.7) Lymphocytes # (Auto) 3.8 K/uL (1.0-4.8) Monocytes # (Auto) 0.6 K/uL (0.1-1.0) Eosinophils # (Auto) 0.27 K/uL (0.00-0.70) Basophils # (Auto) 0.06 K/uL (0.00-0.20) Absolute Immature Granulocyte (auto 0.02 K/uL (0-1) Nucleated Red Blood Cells 0.0 % (0.0-0.19) Sodium Level 140 mmol/L (136-145) Potassium Level 4.2 mmol/L (3.5-5.1) Chloride Level 103 mmol/L (101-111) Carbon Dioxide Level 30 mmol/L (21-32) Blood Urea Nitrogen 10 mg/dL (7-18) Creatinine 1.0 mg/dL (0.5-1.3) Glomerular Filtration Rate Calc 96 mL/min (>90) Random Glucose 281 mg/dL (70-105) H Total Calcium 9.1 mg/dL (8.5-10.1) Labs Reviewed?: Yes CT Scan Comment: [facility] [address] [place], [place] [id number] IMAGING REPORT Signed PATIENT: ESA MEDINA MR#: [id number] : 1980 SEX: M AGE: 44 LOCATION: [facility] ORDER [id number] STATUS: REG ER REPORT#: [id number] SERVICE 1037 REASON: flank pain ORDERING PHYSICIAN: SURINDER GROSS NP PROCEDURE: ABD PEL WO - CT ABDOMEN/PELVIS W/O CONTRAST CT ABDOMEN/PELVIS W/O CONTRAST HISTORY: Left flank COMPARISON: None TECHNIQUE: Multiple sequential axial images of the abdomen and pelvis were obtained from the dome of the diaphragm through symphysis pubis. Patient was not given contrast through intravenous route. Oral contrast was not given. FINDINGS: No pleural effusion is seen bilaterally. There is no evidence of parenchymal disease or pulmonary nodule of the visualized lower lungs. Degenerative changes of the thoracolumbar spine are present. The heart is not enlarged. Liver is enlarged measuring 20 cm. Gallstones are seen in the gallbladder. The liver, spleen, adrenal glands and pancreas are unremarkable. There is no evidence of hydronephrosis bilaterally. No evidence of renal stone is seen. Fecal material is seen in the colon. There are normal size retroperitoneal and mesenteric lymph nodes. No ascites is seen. No CT evidence of acute appendicitis is seen. Pelvic sidewalls are symmetric bilaterally. Bladder is poorly distended IMPRESSION: 1. No hydronephrosis is seen. Gallstones in the gallbladder. CT was performed with one or more following dose reduction techniques: automated exposure control, adjustment of the mA and kv according to patient's size, or use of a iterative reconstruction technique. DICTATED BY: JANE JOAQUIN MD DATE: 02/24/25 [id number] ELECTRONICALLY SIGNED BY: JANE JOAQUIN MD DATE: 02/24/25 1301 ED Course ED Course Orders Procedure Category Date Status Time Cbc With Differential LAB 02/24/25 Complete 10:37 Basic Metabolic Panel LAB 02/24/25 Complete 10:37 Urinalysis Profile LAB 02/24/25 Complete 10:37 Ct Abdomen/Pelvis W/O CT 02/24/25 Resulted Contrast 10:37 0.9%Nacl 1000ml (Ns PHA 02/24/25 Complete 1000ml) 10:37 Ketorolac PHA 02/24/25 Complete Tromethamine 15mg/Ml 10:37 Current Medications Medications (Trade) Dose Ordered Sig/Anthony Route PRN Reason Start Time Stop Time Status Last Admin Dose Admin Ketorolac Tromethamine (toRADol) 15 mg ONCE STAT IV 02/24/25 10:37 02/24/25 10:45 DC 02/24/25 11:33 Sodium Chloride 1,000 ml @ 1,000 mls/hr Q1H STAT IV 02/24/25 10:37 02/24/25 11:36 DC 02/24/25 11:33 Vital Signs Date Time Temp Pulse Resp B/P (MAP) Pulse Ox O2 Delivery O2 Flow Rate FiO2 02/24/25 13:30 97.5 81 20 134/81 98 Room Air* 0 21 02/24/25 11:28 97.5 73 20 126/87 98 Room Air* 0 21 02/24/25 10:33 97.5 73 20 126/87 98 Room Air 0 Medical Decision Making MDM MDM: 44-year-old male with a history of diabetes and kidney stones coming in with complaints of bilateral flank pain for one week worsening today. Patient denies having any hematuria, dysuria, nausea, vomiting or fevers. WHITE COUNT SHOWS NO LEUKOCYTOSIS, NO ANEMIA, NO THROMBOCYTOPENIA. CHEMISTRY UNREMARKABLE OTHER THAN HYPERGLYCEMIA AT 281. UA SHOWS NO EVIDENCE OF URINARY TRACT INFECTION OR HEMATURIA. CT SCAN SHOWS GALLBLADDER STONES WITHOUT CHOLECYSTITIS. NO KIDNEY STONES. PATIENT DOES NOT HAVE ANY RIGHT UPPER QUADRANT PAIN OR EPIGASTRIC PAIN. ABDOMINAL PHYSICAL EXAM IS BENIGN, NO SUSPICION FOR PANCREATITIS OR CHOLECYSTITIS. DISCUSSED FINDINGS WITH THE PATIENT. EDUCATED PATIENT IS HER IS BILATERAL FLANK PAIN COULD BE RELATED MORE MUSCULOSKELETAL. ON DISCUSSED IF ANYTHING WORSENS RETURN TO THE HOSPITAL OTHERWISE FOLLOW UP WITH PCP IN 1-2 DAYS. DIFFERENTIAL DIAGNOSIS: KIDNEY STONE, MUSCULOSKELETAL, RATIONALE: TESTS CONSIDERED AND ORDERED SECONDARY TO SHARED DECISION MAKING INCLUDE: PREVIOUS OUTSIDE RECORDS REVIEWED: OLD ER VISITS. RISK OF COMPLICATION AND/OR MORBIDITY OR MORTALITY OF PATIENT MANAGEMENT: NONE MEDICATIONS-PER MEDICATION RECONCILIATION NEED FOR HOSPITALIZATION: PATIENT DOES NOT MEET CRITERIA FOR HOSPITALIZATION. NEED FOR EMERGENCY MAJOR/MINOR SURGERY: NO THERE ARE NO SOCIAL CONCERNS WITH THIS PATIENT. PRESCRIPTION DRUG MANAGEMENT PRESCRIPTIONS WILL INCLUDE SYMPTOMATIC CARE PATIENT'S PRIOR EXTERNAL MEDICAL RECORDS FROM OTHER ER VISITS WERE REVIEWED BY ME INDICATED. PRIOR TESTING AND RESULTS FROM PREVIOUS VISITS WERE REVIEWED. PRIOR TESTS WERE TAKEN INTO ACCOUNT WITH MEDICAL DECISION MAKING AND RESOURCE UTILIZATION, INDEPENDENT HISTORIAN/HISTORIANS WERE USED TO OBTAIN COMPLETE MEDICAL HISTORY. I INDEPENDENTLY INTERPRETED THE TEST THAT WERE PERFORMED, RESULTS WERE REVIEWED BY ME AND CONSIDERED FINDINGS ON RADIOLOGY IF ORDERED. MEDICAL MANAGEMENT AND EXAMINATION INTERPRETATION DISCUSSIONS WERE HAD BY ME WITH OTHER QUALIFIED HEALTHCARE PROFESSIONALS INDICATED FOR THE PATIENT'S CARE. DX & DISP Disposition: Discharge Departure Impression: Primary Impression: Back pain Condition: Stable Scripts Methocarbamol (Methocarbamol) 500 Mg Tablet 1 TAB PO TID for 5 Days, #90 TAB 0 Refills Prov: SURINDER GROSS PIPE LINE REPAIRER 02/24/25 Additional Instructions: TAKE MEDICATIONS THAT I PRESCRIBED, YOU CAN ADD TYLENOL OR MOTRIN NEEDED. IF YOU HAVE ANY WORSENING SYMPTOMS PLEASE RETURN BACK TO THE EMERGENCY ROOM OTHERWISE FOLLOW UP WITH YOUR PRIMARY DOCTOR IN 1-2 DAYS. Referrals: DENAE GAMEZ (PCP) Time of Disposition: 13:24 I have reviewed the case, and I agree with, Diagnosis and Plan SURINDER GROSS NP February 24, 2025 11:07 SARAH BARRIENTOS DO February 25, 2025 09:58
[2025-02-24 11:21] LABS: APPEARANCE,URINE CLEAR (CLEAR); BILIRUBIN,URINE NEGATIVE (NEGATIVE); COLOR,URINE LIGHT-YELLOW (YELLOW); GLUCOSE, URINE (UA) >=1000 mg/dL (NEGATIVE); KETONES,URINE 5 mg/dL (NEGATIVE); LEUKOCYTE ESTERASE ,URINE NEGATIVE Leu/uL (NEGATIVE); NITRATE,URINE NEGATIVE (NEGATIVE); OCCULT BLOOD,URINE NEGATIVE (NEGATIVE); PROTEIN,URINE NEGATIVE (NEGATIVE); UROBILINOGEN,URINE 0.2 mg/dL (0.2-1.0)
[2025-02-24 11:27] LABS: ADD UA MICROSCOPIC YES
[2025-02-24] MEDS: ketOROlac 15MG/ML VIAL (15MG/ML) IV STA (11:33)
[2025-02-24] MEDS: 0.9%NACL 1000ML 1,000 ML IV STA (11:33)
[2025-02-24 11:40] LABS: MUCUS,URINE RARE LPF (None Seen); RBC,URINE 0-1 /HPF (0-1); SQUAMOUS EPITHELIAL CELL,UR FEW /HPF (0-2); WBC,URINE 0-1 /HPF (0-1)
--- NOTE | 2025-02-24 13:04 | HMCIMG ---
CT ABDOMEN/PELVIS W/O CONTRAST HISTORY: Left flank COMPARISON: None TECHNIQUE: Multiple sequential axial images of the abdomen and pelvis were obtained from the dome of the diaphragm through symphysis pubis. Patient was not given contrast through intravenous route. Oral contrast was not given. FINDINGS: No pleural effusion is seen bilaterally. There is no evidence of parenchymal disease or pulmonary nodule of the visualized lower lungs. Degenerative changes of the thoracolumbar spine are present. The heart is not enlarged. Liver is enlarged measuring 20 cm. Gallstones are seen in the gallbladder. The liver, spleen, adrenal glands and pancreas are unremarkable. There is no evidence of hydronephrosis bilaterally. No evidence of renal stone is seen. Fecal material is seen in the colon. There are normal size retroperitoneal and mesenteric lymph nodes. No ascites is seen. No CT evidence of acute appendicitis is seen. Pelvic sidewalls are symmetric bilaterally. Bladder is poorly distended IMPRESSION: 1. No hydronephrosis is seen. Gallstones in the gallbladder. CT was performed with one or more following dose reduction techniques: automated exposure control, adjustment of the mA and kv according to patient's size, or use of a iterative reconstruction technique.
[2025-02-24] MEDS ORDERED: METH-811 PO (13:23)
[2025-02-24 13:30] VITALS: BP 134/81; PULSE 81; RESP 20; TEMP 97.5; O2SAT 98
== END 2025-02-24 13:41 | disposition home or self-care (01) ==
LOC: EDH 10:32
DX: K80.20 Calculus of gallbladder without cholecystitis without obstruction (principal); M54.9 Dorsalgia, unspecified; E11.9 Type 2 diabetes mellitus without complications; E66.9 Obesity, unspecified; Z79.84 Long term (current) use of oral hypoglycemic drugs; Z79.899 Other long term (current) drug therapy; Z98.890 Other specified postprocedural states
CPT/HCPCS: 99284; 74176; 96374; 80048; 85025; 81001; 36415; J1885; J7030